=== PATIENT | male | born 1965 | race Caucasian/White ===

== ENCOUNTER 2019-08-04 08:55 | Outpatient (CLI) | payer BC ==
--- NOTE | 2019-08-04 09:30 | CT ---
CT THORAX NONCONTRAST: (Low dose screening) DATE: 08/04/2019 HISTORY: 54-year-old male smoker presents for lung cancer screening examination. COMPARISON: none FINDINGS: At the far lateral, subpleural region of the right upper lobe, at the mid lung zone, there is a clust er of numerous tiny noncalcified pulmonary nodules with ill-defined margins. The largest is 5 mm. The smaller ones are 1 to 2 mm. This clustered morphology is very unlikely to represent lung cancer o r metastatic disease. Elsewhere, there are mild to moderate reticular subpleural densities, with the lower lobe predominanc e. No bronchiectasis or honeycombing. No bullae. Heavy atherosclerotic calcification and/or stent in LAD, left main, LCx, and RCA. Atherosclerotic kathi cification without aneurysm of thoracic aorta. No cardiomegaly, pleural effusion, adrenal nodule, or pneumothorax. IMPRESSION: 1) lung RADS category 2X (benign appearance, less than 1% chance of malignancy). 2) coronary atherosclerosis due to calcified coronary lesion. 3) nonspecific subpleural reticular densities.
== END 2019-08-04 08:56 | disposition home or self-care (01) ==
LOC: CT 08:55
PROVIDERS: ATTEND Family Medicine
DX: F17.210 Nicotine dependence, cigarettes, uncomplicated (principal); I25.10 Atherosclerotic heart disease of native coronary artery without angina pectoris; R91.8 Other nonspecific abnormal finding of lung field
CPT/HCPCS: 36415; 80053; 80061; 82306; 84443; 85025; G0297; G0103

== ENCOUNTER 2020-06-22 13:23 | Outpatient (CLI) | payer BC ==
--- NOTE | 2020-06-22 14:21 | RAD ---
XR Chest Pa Lat STANDARD HISTORY: Gammopathy with multiple M spikes COMPARISON: 07/30/2007 FINDINGS: The heart size is normal. Interval postoperative changes of median sternotomy are seen. The lungs are well expanded without focal areas of consolidation, pneumothorax or pleural effusions. The bony structures are otherwise unremarkable. IMPRESSION: No radiographic evidence of acute cardiopulmonary process.
--- NOTE | 2020-06-22 14:26 | RAD ---
Exam: AP pelvis one view: HISTORY: Gammopathy with multiple M spikes COMPARISON: None FINDINGS: No evidence for focal lytic bone lesion. No evidence for fracture, dislocation, or other significant acute osseous abnormality. IMPRESSION: No significant acute process.
--- NOTE | 2020-06-22 14:28 | RAD ---
Exam: Skull series 4 views: HISTORY: Gammopathy with multiple M spikes 4 views of the skull demonstrate no evidence for focal circumscribed lytic defect or lesion. Bony dem ineralization of the sella turcica. IMPRESSION: No convincing evidence for focal lytic bone lesion.
== END 2020-06-22 13:24 | disposition home or self-care (01) ==
LOC: BICRAD 13:23
PROVIDERS: ATTEND Family Medicine
DX: C90.00 Multiple myeloma not having achieved remission (principal); R63.4 Abnormal weight loss; D47.2 Monoclonal gammopathy
CPT/HCPCS: 70260; 71046; 72170

== ENCOUNTER 2020-07-01 09:01 | Day surgery (SDC) | payer BC ==
[2020-06-30 15:03] VITALS: BMI 26.5
[2020-07-01 09:23] LABS: INR-International Normal Ratio 1.1; Prothrombin Time 14.1 sec (12.0-14.7)
[2020-07-01 09:24] LABS: PTT 30.8 sec (22.9-36.1)
[2020-07-01 11:32] VITALS: BP 123/75; TEMP 98.4
--- NOTE | 2020-07-01 14:56 | CT ---
Bone marrow aspiration/biopsy CT-guided HISTORY: Myeloma. FINDINGS: After explaining the procedure and answering all questions, limited CT imaging of the pelvi s was performed with patient prone. Sterile technique, buffered local anesthesia, CT guidance, and a posterior approach were used to care fully engage an 11-gauge bone biopsy needle to the posterior cortex of the ilium body. Position was confirmed with CT. Blood aspirate was obtained and submitted to pathology personnel. Core bone marrow specimen obtained. Patient tolerated the procedure well and was eventually dismissed in good condition. IMPRESSION : Technically successful CT-guided biopsy/aspiration bone marrow. Pathology is pending.
--- NOTE | 2020-07-02 13:38 | CT ---
Bone marrow aspiration/biopsy CT-guided HISTORY: Myeloma. FINDINGS: After explaining the procedure and answering all questions, limited CT imaging of the pelvi s was performed with patient prone. Sterile technique, buffered local anesthesia, CT guidance, and a posterior approach were used to care fully engage an 11-gauge bone biopsy needle to the posterior cortex of the ilium body. Position was confirmed with CT. Blood aspirate was obtained and submitted to pathology personnel. Core bone marrow specimen obtained. Patient tolerated the procedure well and was eventually dismissed in good condition. IMPRESSION : Technically successful CT-guided biopsy/aspiration bone marrow. Pathology is pending. Transcribed Date/Time: 07/02/2020 1:37 PM
== END 2020-07-01 11:45 | disposition home or self-care (01) ==
LOC: CT 09:01
PROVIDERS: ATTEND Internal Medicine Hematology & Oncology
PROC: 07DR3ZX Extraction of Iliac Bone Marrow, Percutaneous Approach, Diagnostic (ICD-10-PCS; principal; 2020-07-01)
DX: C90.00 Multiple myeloma not having achieved remission (principal); I10 Essential (primary) hypertension; I25.10 Atherosclerotic heart disease of native coronary artery without angina pectoris; I25.2 Old myocardial infarction; E78.5 Hyperlipidemia, unspecified; G47.33 Obstructive sleep apnea (adult) (pediatric); Z79.899 Other long term (current) drug therapy
CPT/HCPCS: 20225; 36415; 77002; 85610; 85730; 88184; 88237

== ENCOUNTER 2020-07-13 08:26 | Outpatient (CLI) | payer BC ==
--- NOTE | 2020-07-13 11:13 | PET ---
Radionucleotide whole-body PET scan with CT attenuation correction HISTORY: Multiple myeloma not having achieved remission. Initial staging. FINDINGS: Heterogeneous muscular uptake is present about the arms and hands and The lower legs. At the right mandible adjacent to the canines, a somewhat ill-defined focus of increased uptake is pr esent with max SUV 6.8. CT images show dental hardware at this location. A focus of uptake at the right mandible at the expected location of the first and second molars shows max SUV 6.3. No lytic le mariam is evident on the CT images. No abnormality was apparent at this location on recent radiograph. About the right hand and wrist, prominent uptake is present, including at the triquetral max SUV 6.6 and the fourth metacarpal max SUV 161. No focal abnormalities are associated with the axial spine. Physiologic uptake is present along each urinary tract and the enteric system. Nondiagnostic CT attenuation correction images show prominent calcification throughout the arterial s tructures including the coronary arteries and postoperative changes of the mediastinum. Nonspecific hazy parenchymal opacity at the lower lobes shows no abnormal radiotracer activity and may represent chronic lung disease or mild atelectasis. IMPRESSION : No convincing scintigraphic evidence of myelomatous disease. Uptake about the right maxilla and mandible is likely related to dental disease given the absence of lytic lesion on recent radiograph and the CT findings on today's exam. Uptake at the right wrist/hand is likely related to inflammation or recent trauma. Please correlate w ith clinical history/findings and with radiographic evaluation of the right wrist/hand concerning the possibility of a lytic lesion versus arthritis versus trauma..
== END 2020-07-13 08:27 | disposition home or self-care (01) ==
LOC: PET 08:26
PROVIDERS: ATTEND Internal Medicine Hematology & Oncology
DX: C90.00 Multiple myeloma not having achieved remission (principal)
CPT/HCPCS: 78816; A9552

== ENCOUNTER 2021-07-27 17:04 | Inpatient (IN) | payer BC ==
[~2021-07-27 17:04] MED LIST: Iopamidol-370 76% 500 ML 1 ML ONE
[2021-07-27] MEDS ORDERED: methylPREDNISolone Sod Succ/PF 125 MG/2 ML VIAL ONE (17:33)
[2021-07-27 17:47] LABS: Hemoglobin 14.3 g/dL (14.0-18.0); Mean Corpuscular HGB CONC 33.7 g/dL (32.0-36.0); Mean Corpuscular Hemoglobin 32.9 pg (27.0-31.0); Mean Corpuscular Volume 97.7 fL (78.0-98.0); Mean Platelet Volume 8.2 fL (7.4-10.4); Platelet Count 162 thou/uL (130-400); RBC Distribution Width 19.1 % (11.5-14.5); Red Blood Cell (RBC) Count 4.35 mill/uL (4.70-6.10)
[2021-07-27 17:51] LABS: #Lymphocytes 0.7 thou/uL (1.20-3.40); #Monocytes 0.3 thou/uL (0.11-0.59); #Neutrophils 11.9 thou/uL (1.40-6.50); %Basophils 0.2 % (0.0-1.0); %Eosinophils 0.1 % (0.0-10.0); %Lymphocytes 5.5 % (21.0-51.0); %Monocytes 2.2 % (0.0-10.0); %Neutrophils 92.1 % (42.0-75.0)
[2021-07-27 18:04] LABS: Anisocytosis SLIGHT = 6-15 cells (100X) (0-5/hpf); MDiff Complete? YES; Platelet Morphology Comment Appears Adequate
[2021-07-27 18:10] LABS: ALT (SGPT) 32 U/L (8-55); AST (SGOT) 23 U/L (5-34); Albumin 3.7 g/dL (3.5-5.0); Alkaline Phosphatase 136 U/L (40-110); Anion Gap 15 mmol/L (10-20); BUN (Urea Nitrogen) 18 mg/dL (8.4-25.7); Bilirubin, Total 0.4 mg/dL (0.2-1.2); Calc. Creatinine Clearance 0 mL/min (70-130); Calcium 9.2 mg/dL (7.8-10.44); Carbon Dioxide 25 mmol/L (22-29); Chloride 99 mmol/L (98-107); Globulin 2.6 g/dL (2.4-3.5); Glucose 119 mg/dL (70-105); Potassium 4.5 mmol/L (3.5-5.1); Protein, Total 6.3 g/dL (6.0-8.3); Sodium 134 mmol/L (136-145)
[2021-07-27] MEDS ORDERED: Cefepime 2 GM VIAL ONE (18:34)
[2021-07-27] MEDS ORDERED: Acetaminophen 650 MG Suppository PR PRN (21:32)
[2021-07-27] MEDS ORDERED: Ondansetron ODT 4 MG TAB PO PRN (21:32)
[2021-07-27] MEDS ORDERED: Acetaminophen 325 MG TAB PO PRN (21:32)
[2021-07-27] MEDS ORDERED: Ondansetron PF 4 MG/2 ML Vial IVP PRN (21:32)
[2021-07-27 21:51] LABS: Lactic Acid 2.9 mmol/L (0.5-2.2)
[2021-07-27 22:09] LABS: SARS-CoV-2 NAA Rapid Test Not Detected (NotDetected)
[2021-07-28 05:04] LABS: #Lymphocytes 0.8 thou/uL (1.20-3.40); #Monocytes 0.2 thou/uL (0.11-0.59); #Neutrophils 10.6 thou/uL (1.40-6.50); %Eosinophils 0.1 % (0.0-10.0); %Lymphocytes 7.2 % (21.0-51.0); %Monocytes 1.8 % (0.0-10.0); %Neutrophils 90.9 % (42.0-75.0); Hemoglobin 12.9 g/dL (14.0-18.0); Mean Corpuscular HGB CONC 33.2 g/dL (32.0-36.0); Mean Corpuscular Hemoglobin 32.8 pg (27.0-31.0); Mean Corpuscular Volume 98.6 fL (78.0-98.0); Mean Platelet Volume 8.5 fL (7.4-10.4); Platelet Count 129 thou/uL (130-400); RBC Distribution Width 18.8 % (11.5-14.5); Red Blood Cell (RBC) Count 3.94 mill/uL (4.70-6.10); White Blood Cell (WBC) Count 11.7 thou/uL (4.8-10.8)
[2021-07-28 05:25] LABS: Anion Gap 14 mmol/L (10-20); BUN (Urea Nitrogen) 18 mg/dL (8.4-25.7); Calc. Creatinine Clearance 111 mL/min (70-130); Calcium 9.2 mg/dL (7.8-10.44); Carbon Dioxide 22 mmol/L (22-29); Chloride 98 mmol/L (98-107); Glucose 211 mg/dL (70-105); Potassium 4.1 mmol/L (3.5-5.1); Sodium 130 mmol/L (136-145)
[2021-07-28] MEDS: methylPREDNISolone Sod Succ 40 MG VIAL IVP SCH ×2 (07:59→16:54)
[2021-07-28] MEDS ORDERED: Piperacillin/Tazobactam 3.375 GM in Sodium Chloride 0.9% 100 ML IVPB SCH (08:15)
[2021-07-28 08:23] LABS: Magnesium 1.6 mg/dL (1.6-2.6); Phosphorus 2.4 mg/dL (2.3-4.7)
[2021-07-28] MEDS: Enoxaparin Sodium 40 MG/0.4 ML SYRINGE SC SCH (09:32)
[2021-07-28 11:36] LABS: Lactic Acid 2.2 mmol/L (0.5-2.2)
[2021-07-28] MEDS ORDERED: Non-Formulary Item 1 EACH (Cholecalciferol (Vitamin D3) [Vitamin D3] 5000 UNIT Capsule) PO SCH (12:00)
[2021-07-28] MEDS ORDERED: Clopidogrel Bisulfate 75 MG TAB PO SCH (13:00)
[2021-07-28] MEDS: Clopidogrel Bisulfate 75 MG TAB PO SCH (13:13)
[2021-07-28 13:30] LABS: Free T4 (Free Thyroxine) 0.76 ng/dL (0.70-1.48); Thyroid Stimulating Hormone 0.7006 uIU/mL (0.35-4.94)
[2021-07-28] MEDS: Azithromycin 500 MG in Sodium Chloride 0.9% 250 ML 250 ML IVPB SCH (15:30)
[2021-07-28] MEDS: Piperacillin/Tazobactam 3.375 GM in Sodium Chloride 0.9% 100 ML IVPB SCH (16:54)
[2021-07-28] MEDS: valACYclovir 500 MG TAB PO SCH (20:38)
[2021-07-28] MEDS: Rosuvastatin 20 MG TAB PO SCH (20:39)
[2021-07-28] MEDS: Sulfameth/Trimethoprim SS 400-80MG TAB PO SCH (20:39)
[2021-07-28] MEDS: Icosapent Ethyl 1 GM CAPSULE PO SCH (20:40)
[2021-07-28] MEDS: Benzonatate 100 MG CAP PO SCH (20:40)
[2021-07-28] MEDS: Aspirin Chewable 81 MG TAB PO SCH (20:41)
[2021-07-28] MEDS: Ezetimibe 10 MG TAB PO SCH (20:41)
[2021-07-28] MEDS: Temazepam 15 MG CAP PO SCH (20:42)
[2021-07-28] MEDS: Fluconazole 100 MG TAB PO SCH (20:43)
[2021-07-28] MEDS: Multivit, Therapeutic 1 TAB PO SCH (20:44)
[2021-07-28] MEDS ORDERED: [UNRECOGNIZED DRUG - OTHER] PO SCH (21:00)
[2021-07-28] MEDS ORDERED: Non-Formulary Item 1 EACH (Icosapent Ethyl 1 GM Capsule) PO SCH (21:00)
[2021-07-28] MEDS ORDERED: Non-Formulary Item 1 EACH (Temazepam [Temazepam] 30 MG Capsule) PO SCH (21:00)
[2021-07-28] MEDS ORDERED: Non-Formulary Item 1 EACH (Fluconazole [Fluconazole] 200 MG Tablet) PO SCH (21:00)
[2021-07-28] MEDS ORDERED: FOLIC ACID PO SCH (21:00)
[2021-07-29] MEDS: Piperacillin/Tazobactam 3.375 GM in Sodium Chloride 0.9% 100 ML IVPB SCH ×4 (01:00→23:30)
[2021-07-29] MEDS: methylPREDNISolone Sod Succ 40 MG VIAL IVP SCH ×4 (01:00→23:30)
[2021-07-29] MEDS: Enoxaparin Sodium 40 MG/0.4 ML SYRINGE SC SCH (08:25)
[2021-07-29] MEDS: Benzonatate 100 MG CAP PO SCH ×2 (08:25→21:18)
[2021-07-29] MEDS: Fluconazole 100 MG TAB PO SCH ×2 (08:26→21:17)
[2021-07-29 10:15] LABS: #Lymphocytes 0.8 thou/uL (1.20-3.40); #Monocytes 0.2 thou/uL (0.11-0.59); #Neutrophils 10.1 thou/uL (1.40-6.50); %Basophils 0.1 % (0.0-1.0); %Lymphocytes 6.9 % (21.0-51.0); %Monocytes 1.4 % (0.0-10.0); %Neutrophils 91.6 % (42.0-75.0); Hemoglobin 12.5 g/dL (14.0-18.0); Mean Corpuscular HGB CONC 32.9 g/dL (32.0-36.0); Mean Corpuscular Hemoglobin 32.4 pg (27.0-31.0); Mean Corpuscular Volume 98.5 fL (78.0-98.0); Mean Platelet Volume 8.4 fL (7.4-10.4); Platelet Count 120 thou/uL (130-400); RBC Distribution Width 18.8 % (11.5-14.5); Red Blood Cell (RBC) Count 3.84 mill/uL (4.70-6.10); White Blood Cell (WBC) Count 11.1 thou/uL (4.8-10.8)
[2021-07-29 10:34] LABS: Anion Gap 12 mmol/L (10-20); BUN (Urea Nitrogen) 22 mg/dL (8.4-25.7); Calc. Creatinine Clearance 108 mL/min (70-130); Calcium 8.9 mg/dL (7.8-10.44); Carbon Dioxide 25 mmol/L (22-29); Chloride 97 mmol/L (98-107); Glucose 150 mg/dL (70-105); Potassium 4.1 mmol/L (3.5-5.1); Sodium 130 mmol/L (136-145)
[2021-07-29] MEDS: Azithromycin 500 MG in Sodium Chloride 0.9% 250 ML 250 ML IVPB SCH (14:49)
[2021-07-29] MEDS: Rosuvastatin 20 MG TAB PO SCH (21:17)
[2021-07-29] MEDS: Sulfameth/Trimethoprim SS 400-80MG TAB PO SCH (21:17)
[2021-07-29] MEDS: Aspirin Chewable 81 MG TAB PO SCH (21:17)
[2021-07-29] MEDS: valACYclovir 500 MG TAB PO SCH (21:17)
[2021-07-29] MEDS: Icosapent Ethyl 1 GM CAPSULE PO SCH (21:18)
[2021-07-29] MEDS: Ezetimibe 10 MG TAB PO SCH (21:18)
[2021-07-29] MEDS: Multivit, Therapeutic 1 TAB PO SCH (21:18)
[2021-07-29] MEDS: Temazepam 15 MG CAP PO SCH (21:18)
[2021-07-30 08:33] LABS: Hemoglobin 12.2 g/dL (14.0-18.0); Mean Corpuscular HGB CONC 32.6 g/dL (32.0-36.0); Mean Corpuscular Hemoglobin 32.3 pg (27.0-31.0); RBC Distribution Width 19.2 % (11.5-14.5); Red Blood Cell (RBC) Count 3.78 mill/uL (4.70-6.10)
[2021-07-30] MEDS: Piperacillin/Tazobactam 3.375 GM in Sodium Chloride 0.9% 100 ML IVPB SCH ×2 (09:05→17:00)
[2021-07-30] MEDS: Fluconazole 100 MG TAB PO SCH ×2 (09:06→21:35)
[2021-07-30] MEDS: Benzonatate 100 MG CAP PO SCH ×2 (09:06→21:35)
[2021-07-30] MEDS: Enoxaparin Sodium 40 MG/0.4 ML SYRINGE SC SCH (09:06)
[2021-07-30] MEDS: methylPREDNISolone Sod Succ 40 MG VIAL IVP SCH ×2 (09:06→17:00)
[2021-07-30 11:01] LABS: Anisocytosis SLIGHT = 6-15 cells (100X) (0-5/hpf); Band 4 % (5-11); Lymphocytes 9 % (21-51); MDiff Complete? YES; Monocytes 2 % (0-10); Neutrophil 85 % (42-75); Platelet Count 109 thou/uL (130-400); Platelet Morphology Comment Appears Decreased; Vacuoles SLIGHT; White Blood Cell (WBC) Count 10.2 thou/uL (4.8-10.8)
[2021-07-30] MEDS: Clopidogrel Bisulfate 75 MG TAB PO SCH (12:49)
[2021-07-30] MEDS: Azithromycin 500 MG in Sodium Chloride 0.9% 250 ML 250 ML IVPB SCH (15:10)
[2021-07-30] MEDS: Multivit, Therapeutic 1 TAB PO SCH (21:34)
[2021-07-30] MEDS: valACYclovir 500 MG TAB PO SCH (21:34)
[2021-07-30] MEDS: Temazepam 15 MG CAP PO SCH (21:34)
[2021-07-30] MEDS: Sulfameth/Trimethoprim SS 400-80MG TAB PO SCH (21:34)
[2021-07-30] MEDS: Aspirin Chewable 81 MG TAB PO SCH (21:35)
[2021-07-30] MEDS: Ezetimibe 10 MG TAB PO SCH (21:35)
[2021-07-30] MEDS: Rosuvastatin 20 MG TAB PO SCH (21:35)
[2021-07-30] MEDS: Icosapent Ethyl 1 GM CAPSULE PO SCH (21:35)
[2021-07-31] MEDS: Piperacillin/Tazobactam 3.375 GM in Sodium Chloride 0.9% 100 ML IVPB SCH ×2 (00:03→08:45)
[2021-07-31] MEDS: methylPREDNISolone Sod Succ 40 MG VIAL IVP SCH ×3 (00:04→16:39)
[2021-07-31] MEDS: Benzonatate 100 MG CAP PO SCH ×2 (04:00→08:46)
[2021-07-31 05:25] LABS: Band 5 % (5-11); Hemoglobin 12.2 g/dL (14.0-18.0); Lymphocytes 6 % (21-51); MDiff Complete? YES; Macrocytosis SLIGHT = 6-15 cells (100X) (0-5/hpf); Mean Corpuscular HGB CONC 32.5 g/dL (32.0-36.0); Mean Corpuscular Hemoglobin 32.2 pg (27.0-31.0); Mean Platelet Volume 10.1 fL (7.4-10.4); Monocytes 3 % (0-10); Neutrophil 85 % (42-75); Platelet Count 86 thou/uL (130-400); Platelet Morphology Comment Appears Decreased; RBC Distribution Width 19.1 % (11.5-14.5); Reactive Lymphocytes 1 % (0-10); Red Blood Cell (RBC) Count 3.79 mill/uL (4.70-6.10)
[2021-07-31] MEDS ORDERED: Sodium Chloride 0.65% Nasal 44 ML BOT EA NARE PRN (06:16)
[2021-07-31] MEDS: Ergocalciferol 1.25 MG(50,000 UNITS) CAP PO SCH (08:46)
[2021-07-31] MEDS: Fluconazole 100 MG TAB PO SCH ×2 (08:46→21:00)
[2021-07-31] MEDS: Enoxaparin Sodium 40 MG/0.4 ML SYRINGE SC SCH (08:47)
[2021-07-31] MEDS ORDERED: Succinylcholine 200 MG/10 ml SYRINGE FS ONE (09:40)
[2021-07-31] MEDS: Azithromycin 500 MG in Sodium Chloride 0.9% 250 ML 250 ML IVPB SCH (14:48)
[2021-07-31] MEDS: Linezolid 600 MG in Premix Bag 1 BAG IVPB SCH (16:37)
[2021-07-31] MEDS: Cefepime 2 GM in Sodium Chloride 0.9% 100 ML IVPB SCH (16:37)
[2021-07-31] MEDS ORDERED: Lorazepam 2 MG/ML VIAL SLOW IVP PRN (18:36)
[2021-07-31] MEDS ORDERED: Lorazepam 2 MG/ML VIAL ONE (18:38)
[2021-07-31 18:55] LABS: Actual Bicarbonate (HCO3a) 25.7 mEq/L (22-28); CO2 Tension 41.1 mmHg (35.0-45.0); Calcium, Ionized (arterial) 1.16 mmol/L (1.12-1.30); Carboxyhemoglobin (COHb) 1.4 gm% (0.0-3.0); Hemoglobin (Hb) 13.2 g/dL (14.0-18.0); Potassium - ABG Lab 4.53 mmol/L (3.70-5.30); pH, Arterial 7.41 (7.35-7.45)
[2021-07-31 18:57] LABS: ALV-art Gradient 617.625 mmHg (0-20); Puncture Site RRA
[2021-07-31] MEDS: Propofol 1,000 MG/100 ML VIAL IV PRN ×2 (19:21→23:30)
[2021-07-31] MEDS ORDERED: Fentanyl CADD 100 ML ONE (19:36)
[2021-07-31] MEDS: Fentanyl CADD 100 ML IV SCH (19:36)
[2021-07-31 19:44] LABS: Actual Bicarbonate (HCO3a) 26.9 mEq/L (22-28); Base Excess (BEa) 0.8 mEq/L (-2.0 to +3.0); CO2 Tension 48.7 mmHg (35.0-45.0); Calcium, Ionized (arterial) 1.15 mmol/L (1.12-1.30); Carboxyhemoglobin (COHb) 1.4 gm% (0.0-3.0); Hemoglobin (Hb) 13.1 g/dL (14.0-18.0); Potassium - ABG Lab 4.77 mmol/L (3.70-5.30); pH, Arterial 7.36 (7.35-7.45)
[2021-07-31 19:45] LABS: O2 Tension (PaO2), arterial 48.1 mmHg (80.0-100.0)
[2021-07-31 19:46] LABS: ALV-art Gradient 604.025 mmHg (0-20); Puncture Site RRA
[2021-07-31] MEDS ORDERED: Vecuronium 10 MG VIAL ONE (20:08)
[2021-07-31] MEDS: Vecuronium 10 MG VIAL IV PRN ×2 (20:10→22:15)
[2021-07-31] MEDS ORDERED: Vecuronium 10 MG VIAL IV PRN ×2 (20:15→21:15)
[2021-07-31] MEDS ORDERED: Midazolam HCl 2 mg/2 ml Vial SLOW IVP PRN (20:15)
[2021-07-31] MEDS ORDERED: Norepinephrine 8 MG/0.9% NS 250 ML IVPB PRN (20:17)
[2021-07-31] MEDS ORDERED: Midazolam HCl 2 mg/2 ml Vial ONE (20:17)
[2021-07-31] MEDS ORDERED: Propofol BOLUS 1,000 MG/100 ML VIAL IV PRN (20:30)
[2021-07-31] MEDS ORDERED: DISCONTINUE PREVIOUS NARCOTIC PAIN MEDICATIONS AND BENZODIAZEPINES FS SCH (20:30)
[2021-07-31] MEDS ORDERED: Fentanyl BOLUS 250 ML IVPB PRN (20:30)
[2021-07-31] MEDS ORDERED: Morphine 4 MG/ML VIAL ONE (20:53)
[2021-07-31] MEDS: Lorazepam 2 MG/ML VIAL SLOW IVP PRN (20:55)
[2021-07-31] MEDS: valACYclovir 500 MG TAB PO SCH (21:00)
[2021-07-31] MEDS: Ezetimibe 10 MG TAB PO SCH (21:00)
[2021-07-31] MEDS: Rosuvastatin 20 MG TAB PO SCH (21:00)
[2021-07-31] MEDS: Sulfameth/Trimethoprim SS 400-80MG TAB PO SCH (21:00)
[2021-07-31] MEDS: Multivit, Therapeutic 1 TAB PO SCH (21:00)
[2021-07-31] MEDS: Icosapent Ethyl 1 GM CAPSULE PO SCH (21:00)
[2021-07-31] MEDS: Morphine 2 MG/ML VIAL SLOW IVP PRN (21:10)
[2021-07-31 21:33] LABS: Actual Bicarbonate (HCO3a) 28.8 mEq/L (22-28); Base Excess (BEa) -0.1 mEq/L (-2.0 to +3.0); Calcium, Ionized (arterial) 1.17 mmol/L (1.12-1.30); Carboxyhemoglobin (COHb) 0.8 gm% (0.0-3.0); Hemoglobin (Hb) 12.9 g/dL (14.0-18.0); O2 Tension (PaO2), arterial 67.5 mmHg (80.0-100.0); Potassium - ABG Lab 4.73 mmol/L (3.70-5.30)
[2021-07-31 21:38] LABS: Puncture Site LRA; pH, Arterial 7.24 (7.35-7.45)
[2021-07-31] MEDS ORDERED: Sodium Bicarb 50 MEQ/50 ML Abboject 8.4% SYRINGE ONE (21:44)
[2021-07-31] MEDS: Sodium Bicarb 50 MEQ/50 ML Abboject 8.4% SYRINGE IVP SCH (22:00)
[2021-08-01] MEDS: Aspirin Chewable 81 MG TAB PO SCH ×3 (00:41→21:47)
[2021-08-01] MEDS: Fluconazole 100 MG TAB PO SCH ×2 (00:42→21:47)
[2021-08-01] MEDS: Benzonatate 100 MG CAP PO SCH ×2 (00:42→08:59)
[2021-08-01] MEDS: Vecuronium 10 MG VIAL IV PRN ×5 (01:36→08:06)
[2021-08-01] MEDS: Sodium Bicarb 50 MEQ/50 ML Abboject 8.4% SYRINGE IVP SCH ×4 (01:53→14:41)
[2021-08-01] MEDS ORDERED: Morphine 4 MG/ML VIAL ONE (01:57)
[2021-08-01 02:08] LABS: Actual Bicarbonate (HCO3a) 54.3 mEq/L (22-28); Base Excess (BEa) 23.6 mEq/L (-2.0 to +3.0); CO2 Tension 96.5 mmHg (35.0-45.0); Calcium, Ionized (arterial) 0.98 mmol/L (1.12-1.30); Carboxyhemoglobin (COHb) 1.6 gm% (0.0-3.0); Hemoglobin (Hb) 12.6 g/dL (14.0-18.0); O2 Tension (PaO2), arterial 48.5 mmHg (80.0-100.0); pH, Arterial 7.37 (7.35-7.45)
[2021-08-01] MEDS: Lorazepam 2 MG/ML VIAL SLOW IVP PRN ×2 (02:08→16:00)
[2021-08-01 02:09] LABS: Puncture Site LR
[2021-08-01 02:10] LABS: ALV-art Gradient 543.875 mmHg (0-20)
[2021-08-01] MEDS: Morphine 2 MG/ML VIAL SLOW IVP PRN (02:12)
[2021-08-01 02:32] LABS: #Lymphocytes 0.7 thou/uL (1.20-3.40); #Monocytes 0.2 thou/uL (0.11-0.59); %Basophils 0.2 % (0.0-1.0); %Eosinophils 0.1 % (0.0-10.0); %Lymphocytes 7.7 % (21.0-51.0); %Monocytes 2.2 % (0.0-10.0); %Neutrophils 89.9 % (42.0-75.0); Hemoglobin 12.7 g/dL (14.0-18.0); Mean Corpuscular HGB CONC 32.8 g/dL (32.0-36.0); Mean Corpuscular Hemoglobin 33.2 pg (27.0-31.0); Mean Platelet Volume 10.5 fL (7.4-10.4); Platelet Count 71 thou/uL (130-400); RBC Distribution Width 18.6 % (11.5-14.5); Red Blood Cell (RBC) Count 3.84 mill/uL (4.70-6.10); White Blood Cell (WBC) Count 8.8 thou/uL (4.8-10.8)
[2021-08-01 02:42] LABS: ALT (SGPT) 132 U/L (8-55); AST (SGOT) 110 U/L (5-34); Albumin 2.7 g/dL (3.5-5.0); Alkaline Phosphatase 233 U/L (40-110); Anion Gap 12 mmol/L (10-20); BUN (Urea Nitrogen) 28 mg/dL (8.4-25.7); Bilirubin, Total 0.9 mg/dL (0.2-1.2); Calc. Creatinine Clearance 112 mL/min (70-130); Calcium 8.7 mg/dL (7.8-10.44); Carbon Dioxide 33 mmol/L (22-29); Chloride 96 mmol/L (98-107); Globulin 2.9 g/dL (2.4-3.5); Glucose 183 mg/dL (70-105); Magnesium 1.9 mg/dL (1.6-2.6); Potassium 4.8 mmol/L (3.5-5.1); Protein, Total 5.6 g/dL (6.0-8.3); Sodium 136 mmol/L (136-145)
[2021-08-01 03:24] LABS: Fibrinogen 693 mg/dL (253-463)
[2021-08-01 03:25] LABS: INR-International Normal Ratio 1.3; PTT 28.7 sec (22.9-36.1); Prothrombin Time 15.9 sec (12.0-14.7)
[2021-08-01] MEDS: valACYclovir 500 MG TAB PO SCH (04:02)
[2021-08-01] MEDS: Propofol 1,000 MG/100 ML VIAL IV PRN ×3 (04:09→19:30)
[2021-08-01 04:12] LABS: D-Dimer Test Greater than 20.00 *mcg/mL (0.27-0.43)
[2021-08-01] MEDS: Cefepime 2 GM in Sodium Chloride 0.9% 100 ML IVPB SCH ×2 (06:05→16:29)
[2021-08-01] MEDS: Linezolid 600 MG in Premix Bag 1 BAG IVPB SCH ×2 (06:06→16:38)
[2021-08-01] MEDS ORDERED: Sterile Water 10 ML ONE (07:55)
[2021-08-01] MEDS: methylPREDNISolone Sod Succ 40 MG VIAL IVP SCH ×4 (08:02→23:17)
[2021-08-01 08:22] LABS: Actual Bicarbonate (HCO3a) 37.2 mEq/L (22-28); Base Excess (BEa) 9.5 mEq/L (-2.0 to +3.0); Calcium, Ionized (arterial) 1.06 mmol/L (1.12-1.30); Carboxyhemoglobin (COHb) 0.6 gm% (0.0-3.0); Hemoglobin (Hb) 11.5 g/dL (14.0-18.0); O2 Tension (PaO2), arterial 87.7 mmHg (80.0-100.0); pH, Arterial 7.36 (7.35-7.45)
[2021-08-01 08:24] LABS: CO2 Tension 67.6 mmHg (35.0-45.0)
[2021-08-01 08:25] LABS: Puncture Site LRA
[2021-08-01] MEDS ORDERED: Calcium Gluconate 4.6 MEQ in Sodium Chloride 0.9% 100 ML IVPB SCH (09:04)
[2021-08-01] MEDS ORDERED: Fentanyl CADD 100 ML ONE ×2 (10:08→20:18)
[2021-08-01] MEDS: Fentanyl CADD 100 ML IV SCH ×2 (10:10→20:21)
[2021-08-01] MEDS: Clopidogrel Bisulfate 75 MG TAB PO SCH (13:19)
[2021-08-01] MEDS: Dextrose 5%-Lactated Ringers 1,000 ML IV SCH ×2 (13:19→23:16)
[2021-08-01 13:37] LABS: BUN (Urea Nitrogen) 30 mg/dL (8.4-25.7); Calc. Creatinine Clearance 112 mL/min (70-130); Calcium 8.8 mg/dL (7.8-10.44); Glucose 170 mg/dL (70-105); Magnesium 2.1 mg/dL (1.6-2.6); Phosphorus 3.4 mg/dL (2.3-4.7)
[2021-08-01 13:49] LABS: Anion Gap 10 mmol/L (10-20); Carbon Dioxide 39 mmol/L (22-29); Chloride 96 mmol/L (98-107); Potassium 4.6 mmol/L (3.5-5.1); Sodium 140 mmol/L (136-145)
[2021-08-01] MEDS: Azithromycin 500 MG in Sodium Chloride 0.9% 250 ML 250 ML IVPB SCH (14:41)
[2021-08-01 21:15] LABS: Anion Gap 12 mmol/L (10-20); BUN (Urea Nitrogen) 26 mg/dL (8.4-25.7); Calc. Creatinine Clearance 109 mL/min (70-130); Calcium 8.2 mg/dL (7.8-10.44); Carbon Dioxide 35 mmol/L (22-29); Chloride 95 mmol/L (98-107); Glucose 364 mg/dL (70-105); Magnesium 1.9 mg/dL (1.6-2.6); Phosphorus 2.4 mg/dL (2.3-4.7); Sodium 138 mmol/L (136-145)
[2021-08-01] MEDS: Multivit, Therapeutic 1 TAB PO SCH (21:47)
[2021-08-01] MEDS: Sulfameth/Trimethoprim SS 400-80MG TAB PO SCH (21:48)
[2021-08-01] MEDS: Icosapent Ethyl 1 GM CAPSULE PO SCH (21:49)
[2021-08-02] MEDS: Linezolid 600 MG in Premix Bag 1 BAG IVPB SCH (03:30)
[2021-08-02] MEDS: Cefepime 2 GM in Sodium Chloride 0.9% 100 ML IVPB SCH ×2 (04:17→16:38)
[2021-08-02 04:58] LABS: Anion Gap 13 mmol/L (10-20); BUN (Urea Nitrogen) 26 mg/dL (8.4-25.7); Calc. Creatinine Clearance 99 mL/min (70-130); Calcium 8.1 mg/dL (7.8-10.44); Carbon Dioxide 33 mmol/L (22-29); Chloride 96 mmol/L (98-107); Magnesium 1.8 mg/dL (1.6-2.6); Phosphorus 2.4 mg/dL (2.3-4.7); Sodium 138 mmol/L (136-145)
[2021-08-02 05:06] LABS: Glucose 654 mg/dL (70-105)
[2021-08-02] MEDS ORDERED: HumaLOG 300 UNITS/3 ML VIAL SC PRN (05:57)
[2021-08-02] MEDS ORDERED: Dextrose 5% in Water 1,000 ML IV PRN (05:57)
[2021-08-02] MEDS ORDERED: Dextrose 50% Abboject 50 ML SYRINGE SLOW IVP PRN (05:57)
[2021-08-02] MEDS ORDERED: Fentanyl CADD 100 ML ONE ×2 (06:13→23:54)
[2021-08-02] MEDS: Fentanyl CADD 100 ML IV SCH ×2 (06:15→23:56)
[2021-08-02] MEDS: HumaLOG 300 UNITS/3 ML VIAL SC PRN ×3 (06:15→23:50)
[2021-08-02] MEDS: Propofol 1,000 MG/100 ML VIAL IV PRN ×2 (06:15→16:44)
[2021-08-02 07:15] LABS: CMV IgG AB Greater than 10.00 U/mL (0.00-0.59)
[2021-08-02 07:20] LABS: Actual Bicarbonate (HCO3a) 36.5 mEq/L (22-28); Base Excess (BEa) 12.3 mEq/L (-2.0 to +3.0); CO2 Tension 45.7 mmHg (35.0-45.0); Calcium, Ionized (arterial) 1.11 mmol/L (1.12-1.30); Carboxyhemoglobin (COHb) 0.7 gm% (0.0-3.0); O2 Tension (PaO2), arterial 52.8 mmHg (80.0-100.0); Potassium - ABG Lab 3.76 mmol/L (3.70-5.30); Puncture Site RRA; pH, Arterial 7.52 (7.35-7.45)
[2021-08-02 07:21] LABS: ALV-art Gradient 282.225 mmHg (0-20)
[2021-08-02] MEDS: Dextrose 5%-Lactated Ringers 1,000 ML IV SCH ×2 (08:02→19:00)
[2021-08-02] MEDS: Benzonatate 100 MG CAP PO SCH ×2 (08:02→21:22)
[2021-08-02] MEDS: Fluconazole 100 MG TAB PO SCH ×2 (08:28→21:21)
[2021-08-02] MEDS: methylPREDNISolone Sod Succ 40 MG VIAL IVP SCH ×3 (08:28→23:50)
[2021-08-02] MEDS: Pantoprazole 40 MG VIAL IVP SCH (09:14)
[2021-08-02 11:43] LABS: #Lymphocytes 0.5 thou/uL (1.20-3.40); #Monocytes 0.1 thou/uL (0.11-0.59); %Basophils 0.3 % (0.0-1.0); %Eosinophils 0.3 % (0.0-10.0); %Lymphocytes 10.7 % (21.0-51.0); %Monocytes 1.5 % (0.0-10.0); %Neutrophils 87.2 % (42.0-75.0); Hemoglobin 11.2 g/dL (14.0-18.0); MDiff Complete? YES; Mean Corpuscular HGB CONC 32.5 g/dL (32.0-36.0); Mean Platelet Volume 9.9 fL (7.4-10.4); Platelet Count 40 thou/uL (130-400); Platelet Morphology Comment Appears Decreased; Polychromasia SLIGHT = 2-3 cells (100X) (0-2/hpf); RBC Distribution Width 18.2 % (11.5-14.5); Red Blood Cell (RBC) Count 3.38 mill/uL (4.70-6.10); Schistocytes SLIGHT = 2-5 cells (100X) (0-1/hpf); White Blood Cell (WBC) Count 4.6 thou/uL (4.8-10.8)
[2021-08-02 12:30] LABS: Anion Gap 12 mmol/L (10-20); BUN (Urea Nitrogen) 27 mg/dL (8.4-25.7); Calc. Creatinine Clearance 131 mL/min (70-130); Calcium 8.6 mg/dL (7.8-10.44); Carbon Dioxide 35 mmol/L (22-29); Chloride 96 mmol/L (98-107); Glucose 159 mg/dL (70-105); Magnesium 2.1 mg/dL (1.6-2.6); Potassium 4.5 mmol/L (3.5-5.1); Sodium 138 mmol/L (136-145)
[2021-08-02] MEDS: Azithromycin 500 MG in Sodium Chloride 0.9% 250 ML 250 ML IVPB SCH (15:02)
[2021-08-02 19:37] LABS: CMV DNA-PCR Test 13200 IU/mL (Negative); CMV log 10 Quant 4.121 (.)
[2021-08-02] MEDS: Aspirin Chewable 81 MG TAB PO SCH (21:20)
[2021-08-02] MEDS: Sulfameth/Trimethoprim SS 400-80MG TAB PO SCH (21:21)
[2021-08-02] MEDS: valACYclovir 500 MG TAB PO SCH (21:21)
[2021-08-02] MEDS: Multivit, Therapeutic 1 TAB PO SCH (21:21)
[2021-08-02] MEDS: Icosapent Ethyl 1 GM CAPSULE PO SCH (21:21)
[2021-08-03] MEDS: Dextrose 5%-Lactated Ringers 1,000 ML IV SCH (04:02)
[2021-08-03] MEDS: HumaLOG 300 UNITS/3 ML VIAL SC PRN ×5 (04:18→22:35)
[2021-08-03] MEDS: Cefepime 2 GM in Sodium Chloride 0.9% 100 ML IVPB SCH ×2 (04:18→17:00)
[2021-08-03 04:41] LABS: #Lymphocytes 0.4 thou/uL (1.20-3.40); #Monocytes 0.1 thou/uL (0.11-0.59); #Neutrophils 4.5 thou/uL (1.40-6.50); %Basophils 0.1 % (0.0-1.0); %Eosinophils 0.1 % (0.0-10.0); %Lymphocytes 7.7 % (21.0-51.0); %Monocytes 2.1 % (0.0-10.0); Hemoglobin 9.9 g/dL (14.0-18.0); Mean Corpuscular HGB CONC 33.6 g/dL (32.0-36.0); Mean Corpuscular Hemoglobin 33.6 pg (27.0-31.0); Mean Platelet Volume 12.1 fL (7.4-10.4); Platelet Count 36 thou/uL (130-400); RBC Distribution Width 18.3 % (11.5-14.5); Red Blood Cell (RBC) Count 2.95 mill/uL (4.70-6.10); White Blood Cell (WBC) Count 4.9 thou/uL (4.8-10.8)
[2021-08-03 04:51] LABS: Anion Gap 10 mmol/L (10-20); BUN (Urea Nitrogen) 32 mg/dL (8.4-25.7); Calc. Creatinine Clearance 131 mL/min (70-130); Calcium 8.5 mg/dL (7.8-10.44); Carbon Dioxide 34 mmol/L (22-29); Chloride 98 mmol/L (98-107); Glucose 187 mg/dL (70-105); Potassium 4.2 mmol/L (3.5-5.1); Sodium 138 mmol/L (136-145)
[2021-08-03] MEDS: Propofol 1,000 MG/100 ML VIAL IV PRN ×3 (05:08→22:59)
[2021-08-03 07:02] LABS: Actual Bicarbonate (HCO3a) 28.9 mEq/L (22-28); Base Excess (BEa) 5.1 mEq/L (-2.0 to +3.0); CO2 Tension 39.1 mmHg (35.0-45.0); Calcium, Ionized (arterial) 1.14 mmol/L (1.12-1.30); Carboxyhemoglobin (COHb) 0.9 gm% (0.0-3.0); Hemoglobin (Hb) 10.5 g/dL (14.0-18.0); Potassium - ABG Lab 3.93 mmol/L (3.70-5.30); pH, Arterial 7.49 (7.35-7.45)
[2021-08-03 07:53] LABS: O2 Tension (PaO2), arterial 54.2 mmHg (80.0-100.0); Puncture Site LRA
[2021-08-03 07:54] LABS: ALV-art Gradient 289.075 mmHg (0-20)
[2021-08-03] MEDS: Pantoprazole 40 MG VIAL IVP SCH (08:22)
[2021-08-03] MEDS: Benzonatate 100 MG CAP PO SCH ×2 (08:22→22:03)
[2021-08-03] MEDS: methylPREDNISolone Sod Succ 40 MG VIAL IVP SCH ×2 (08:22→17:00)
[2021-08-03] MEDS: Fluconazole 100 MG TAB PO SCH ×2 (08:22→22:02)
[2021-08-03] MEDS: Azithromycin 500 MG in Sodium Chloride 0.9% 250 ML 250 ML IVPB SCH (14:28)
[2021-08-03 15:14] LABS: Heparin-Induced Ab (HITA) 0.078 OD (0.000-0.400)
[2021-08-03] MEDS ORDERED: Fentanyl CADD 100 ML ONE (17:06)
[2021-08-03] MEDS: Fentanyl CADD 100 ML IV SCH (17:08)
[2021-08-03] MEDS: Vecuronium 10 MG VIAL IV PRN ×2 (20:46→22:41)
[2021-08-03] MEDS: Sterile Water 10 ML VIAL IVP PRN (20:51)
[2021-08-03] MEDS ORDERED: Ganciclovir Sodium 500 MG/10 ML VIAL IVPB SCH (21:00)
[2021-08-03] MEDS: Multivit, Therapeutic 1 TAB PO SCH (22:01)
[2021-08-03] MEDS: Aspirin Chewable 81 MG TAB PO SCH (22:02)
[2021-08-03] MEDS: Icosapent Ethyl 1 GM CAPSULE PO SCH (22:02)
[2021-08-03] MEDS: Sulfameth/Trimethoprim SS 400-80MG TAB PO SCH (22:02)
[2021-08-03] MEDS: valACYclovir 500 MG TAB PO SCH (22:03)
[2021-08-03] MEDS: Lorazepam 2 MG/ML VIAL SLOW IVP PRN (22:41)
[2021-08-03] MEDS: GANCICLOVIR SODIUM IVPB SCH (22:44)
[2021-08-03] MEDS: SODIUM CHLORIDE 0.9% IVPB SCH (22:44)
[2021-08-04] MEDS: methylPREDNISolone Sod Succ 40 MG VIAL IVP SCH ×4 (00:47→23:56)
[2021-08-04] MEDS: HumaLOG 300 UNITS/3 ML VIAL SC PRN ×5 (00:48→21:28)
[2021-08-04] MEDS: Vecuronium 10 MG VIAL IV PRN ×3 (01:34→06:54)
[2021-08-04] MEDS: Lorazepam 2 MG/ML VIAL SLOW IVP PRN ×4 (01:35→14:57)
[2021-08-04] MEDS: Cefepime 2 GM in Sodium Chloride 0.9% 100 ML IVPB SCH ×2 (04:03→16:52)
[2021-08-04] MEDS: Propofol 1,000 MG/100 ML VIAL IV PRN ×5 (04:08→20:54)
[2021-08-04] MEDS ORDERED: Fentanyl CADD 100 ML ONE ×2 (04:33→14:47)
[2021-08-04 04:38] LABS: #Lymphocytes 0.5 thou/uL (1.20-3.40); #Monocytes 0.1 thou/uL (0.11-0.59); #Neutrophils 4.7 thou/uL (1.40-6.50); %Eosinophils 0.1 % (0.0-10.0); %Monocytes 1.6 % (0.0-10.0); %Neutrophils 89.3 % (42.0-75.0); Hemoglobin 9.5 g/dL (14.0-18.0); Mean Corpuscular HGB CONC 33.3 g/dL (32.0-36.0); Mean Corpuscular Hemoglobin 33.6 pg (27.0-31.0); Mean Platelet Volume 12.9 fL (7.4-10.4); Platelet Count 30 thou/uL (130-400); RBC Distribution Width 18.3 % (11.5-14.5); Red Blood Cell (RBC) Count 2.83 mill/uL (4.70-6.10); White Blood Cell (WBC) Count 5.3 thou/uL (4.8-10.8)
[2021-08-04] MEDS: Fentanyl CADD 100 ML IV SCH ×2 (04:38→14:53)
[2021-08-04 04:59] LABS: Anion Gap 10 mmol/L (10-20); BUN (Urea Nitrogen) 31 mg/dL (8.4-25.7); Calc. Creatinine Clearance 120 mL/min (70-130); Calcium 8.5 mg/dL (7.8-10.44); Carbon Dioxide 34 mmol/L (22-29); Chloride 98 mmol/L (98-107); Glucose 204 mg/dL (70-105); Potassium 4.8 mmol/L (3.5-5.1); Sodium 137 mmol/L (136-145)
[2021-08-04 07:26] LABS: Actual Bicarbonate (HCO3a) 32.9 mEq/L (22-28); Base Excess (BEa) 4.9 mEq/L (-2.0 to +3.0); Calcium, Ionized (arterial) 1.15 mmol/L (1.12-1.30); Carboxyhemoglobin (COHb) 0.5 gm% (0.0-3.0); Hemoglobin (Hb) 9.8 g/dL (14.0-18.0); O2 Tension (PaO2), arterial 63.5 mmHg (80.0-100.0); Potassium - ABG Lab 4.71 mmol/L (3.70-5.30); pH, Arterial 7.29 (7.35-7.45)
[2021-08-04 07:45] LABS: CO2 Tension 70.1 mmHg (35.0-45.0)
[2021-08-04 07:46] LABS: ALV-art Gradient 276.675 mmHg (0-20); Puncture Site LRA
[2021-08-04] MEDS: Fluconazole 100 MG TAB PO SCH ×2 (08:54→20:56)
[2021-08-04] MEDS: Benzonatate 100 MG CAP PO SCH ×2 (08:57→20:52)
[2021-08-04] MEDS: Pantoprazole 40 MG VIAL IVP SCH (10:15)
[2021-08-04] MEDS: GANCICLOVIR SODIUM IVPB SCH ×2 (10:24→21:00)
[2021-08-04] MEDS: SODIUM CHLORIDE 0.9% IVPB SCH ×2 (10:24→21:00)
[2021-08-04] MEDS: Azithromycin 500 MG in Sodium Chloride 0.9% 250 ML 250 ML IVPB SCH (14:54)
[2021-08-04 19:50] LABS: SARS-CoV-2 PCR by NAA Not Detected (NotDetected)
[2021-08-04] MEDS: Icosapent Ethyl 1 GM CAPSULE PO SCH (20:56)
[2021-08-04] MEDS: Multivit, Therapeutic 1 TAB PO SCH (20:56)
[2021-08-04] MEDS: Sulfameth/Trimethoprim SS 400-80MG TAB PO SCH (20:57)
[2021-08-04] MEDS: valACYclovir 500 MG TAB PO SCH (20:57)
[2021-08-04 21:13] LABS: Histoplasma Yeast AB (CF) Negative (Neg:<1:2)
[2021-08-04 21:37] LABS: A. flavus Negative (Neg:<1:1); A. fumigatus Negative (Neg:<1:1); A. niger Negative (Neg:<1:1)
[2021-08-05] MEDS: HumaLOG 300 UNITS/3 ML VIAL SC PRN ×6 (00:10→21:10)
[2021-08-05] MEDS ORDERED: Fentanyl CADD 100 ML ONE ×3 (01:19→23:08)
[2021-08-05] MEDS: Fentanyl CADD 100 ML IV SCH ×3 (01:23→23:11)
[2021-08-05] MEDS: Propofol 1,000 MG/100 ML VIAL IV PRN ×4 (01:23→17:18)
[2021-08-05] MEDS: Cefepime 2 GM in Sodium Chloride 0.9% 100 ML IVPB SCH ×2 (04:10→17:19)
[2021-08-05 04:53] LABS: Anion Gap 8 mmol/L (10-20); BUN (Urea Nitrogen) 24 mg/dL (8.4-25.7); Calc. Creatinine Clearance 150 mL/min (70-130); Calcium 8.4 mg/dL (7.8-10.44); Carbon Dioxide 35 mmol/L (22-29); Chloride 100 mmol/L (98-107); Glucose 246 mg/dL (70-105); Potassium 4.6 mmol/L (3.5-5.1); Sodium 138 mmol/L (136-145)
[2021-08-05 05:37] LABS: Anisocytosis SLIGHT = 6-15 cells (100X) (0-5/hpf); Band 10 % (5-11); Hemoglobin 9.7 g/dL (14.0-18.0); Lymphocytes 4 % (21-51); MDiff Complete? YES; Mean Corpuscular HGB CONC 32.9 g/dL (32.0-36.0); Mean Corpuscular Hemoglobin 32.7 pg (27.0-31.0); Mean Corpuscular Volume 99.4 fL (78.0-98.0); Mean Platelet Volume 13.4 fL (7.4-10.4); Monocytes 3 % (0-10); Neutrophil 83 % (42-75); Nucleated RBC 3 % (0); Platelet Count 22 thou/uL (130-400); Platelet Morphology Comment Appears Decreased; RBC Distribution Width 17.9 % (11.5-14.5); Red Blood Cell (RBC) Count 2.95 mill/uL (4.70-6.10); White Blood Cell (WBC) Count 4.6 thou/uL (4.8-10.8)
[2021-08-05 07:06] LABS: Actual Bicarbonate (HCO3a) 31.5 mEq/L (22-28); Base Excess (BEa) 5.8 mEq/L (-2.0 to +3.0); CO2 Tension 51.5 mmHg (35.0-45.0); Calcium, Ionized (arterial) 1.16 mmol/L (1.12-1.30); Carboxyhemoglobin (COHb) 1.3 gm% (0.0-3.0); Hemoglobin (Hb) 10.5 g/dL (14.0-18.0); Potassium - ABG Lab 4.47 mmol/L (3.70-5.30)
[2021-08-05 07:40] LABS: O2 Tension (PaO2), arterial 50.3 mmHg (80.0-100.0)
[2021-08-05 07:41] LABS: ALV-art Gradient 206.175 mmHg (0-20); Puncture Site RRA
[2021-08-05] MEDS ORDERED: VALGANCICLOVIR HCL PER TUBE SCH (09:00)
[2021-08-05] MEDS ORDERED: COMPOUND VEHICLE SF PER TUBE SCH (09:00)
[2021-08-05] MEDS: methylPREDNISolone Sod Succ 40 MG VIAL IVP SCH ×2 (09:01→17:18)
[2021-08-05] MEDS: Fluconazole 100 MG TAB PO SCH ×2 (09:01→21:10)
[2021-08-05] MEDS: Benzonatate 100 MG CAP PO SCH (09:55)
[2021-08-05] MEDS: Pantoprazole 40 MG VIAL IVP SCH (10:19)
[2021-08-05] MEDS: Lorazepam 2 MG/ML VIAL SLOW IVP PRN (11:55)
[2021-08-05] MEDS ORDERED: Refresh Lacri-lube Opth Oint 7 GM TUBE EA EYE PRN (13:54)
[2021-08-05] MEDS ORDERED: Pancrelipase DR 12,000 1 CAP FS PRN ×2 (14:15)
[2021-08-05] MEDS ORDERED: Sodium Bicarbonate Tab 325 MG TAB PER TUBE PRN ×2 (14:15)
[2021-08-05] MEDS: Azithromycin 500 MG in Sodium Chloride 0.9% 250 ML 250 ML IVPB SCH (15:30)
[2021-08-05] MEDS: Multivit, Therapeutic 1 TAB PO SCH (21:10)
[2021-08-05] MEDS: Icosapent Ethyl 1 GM CAPSULE PO SCH (21:10)
[2021-08-05] MEDS: valACYclovir 500 MG TAB PO SCH (21:10)
[2021-08-05] MEDS: Sulfameth/Trimethoprim SS 400-80MG TAB PO SCH (21:10)
[2021-08-05] MEDS: VALGANCICLOVIR HCL PER TUBE SCH (22:33)
[2021-08-05] MEDS: [UNRECOGNIZED DRUG - OTHER] PER TUBE SCH (22:33)
[2021-08-06] MEDS: HumaLOG 300 UNITS/3 ML VIAL SC PRN ×6 (00:26→23:49)
[2021-08-06] MEDS: methylPREDNISolone Sod Succ 40 MG VIAL IVP SCH ×4 (00:26→23:40)
[2021-08-06] MEDS: Propofol 1,000 MG/100 ML VIAL IV PRN ×5 (03:56→23:35)
[2021-08-06] MEDS: Cefepime 2 GM in Sodium Chloride 0.9% 100 ML IVPB SCH ×2 (03:56→16:50)
[2021-08-06 05:25] LABS: Anisocytosis SLIGHT = 6-15 cells (100X) (0-5/hpf); Band 6 % (5-11); Hemoglobin 9.7 g/dL (14.0-18.0); Lymphocytes 4 % (21-51); MDiff Complete? YES; Mean Corpuscular HGB CONC 35.4 g/dL (32.0-36.0); Mean Corpuscular Hemoglobin 34.8 pg (27.0-31.0); Mean Corpuscular Volume 98.4 fL (78.0-98.0); Mean Platelet Volume 12.5 fL (7.4-10.4); Monocytes 1 % (0-10); Myelocyte 1 % (0-0); Neutrophil 88 % (42-75); Nucleated RBC 12 % (0); Platelet Count 71 thou/uL (130-400); Platelet Morphology Comment Appears Decreased; Red Blood Cell (RBC) Count 2.79 mill/uL (4.70-6.10); Schistocytes SLIGHT = 2-5 cells (100X) (0-1/hpf); Tear Drops SLIGHT = 2-5 cells (100X) (0-1/hpf); White Blood Cell (WBC) Count 6.1 thou/uL (4.8-10.8)
[2021-08-06 05:47] LABS: Anion Gap 11 mmol/L (10-20); BUN (Urea Nitrogen) 32 mg/dL (8.4-25.7); Calc. Creatinine Clearance 124 mL/min (70-130); Calcium 8.2 mg/dL (7.8-10.44); Carbon Dioxide 31 mmol/L (22-29); Chloride 101 mmol/L (98-107); Glucose 199 mg/dL (70-105); Potassium 5.4 mmol/L (3.5-5.1); Sodium 138 mmol/L (136-145)
[2021-08-06 07:31] LABS: Actual Bicarbonate (HCO3a) 29.4 mEq/L (22-28); Base Excess (BEa) 5.1 mEq/L (-2.0 to +3.0); CO2 Tension 42.5 mmHg (35.0-45.0); Calcium, Ionized (arterial) 1.16 mmol/L (1.12-1.30); Carboxyhemoglobin (COHb) 1.4 gm% (0.0-3.0); Hemoglobin (Hb) 10.2 g/dL (14.0-18.0); Potassium - ABG Lab 4.98 mmol/L (3.70-5.30); pH, Arterial 7.46 (7.35-7.45)
[2021-08-06 07:41] LABS: ALV-art Gradient 221.225 mmHg (0-20); O2 Tension (PaO2), arterial 46.5 mmHg (80.0-100.0); Puncture Site RRA
[2021-08-06] MEDS: Fluconazole 100 MG TAB PO SCH ×2 (08:59→20:39)
[2021-08-06] MEDS: Pantoprazole 40 MG VIAL IVP SCH ×2 (09:59→11:13)
[2021-08-06] MEDS ORDERED: Fentanyl CADD 100 ML ONE ×2 (10:50→22:16)
[2021-08-06] MEDS: Fentanyl CADD 100 ML IV SCH ×2 (11:01→22:20)
[2021-08-06] MEDS: Lorazepam 2 MG/ML VIAL SLOW IVP PRN ×3 (11:01→22:35)
[2021-08-06] MEDS: [UNRECOGNIZED DRUG - OTHER] PER TUBE SCH ×2 (11:03→21:20)
[2021-08-06] MEDS: VALGANCICLOVIR HCL PER TUBE SCH ×2 (11:03→21:20)
[2021-08-06] MEDS: Azithromycin 500 MG in Sodium Chloride 0.9% 250 ML 250 ML IVPB SCH (14:44)
[2021-08-06] MEDS: Sterile Water 10 ML VIAL IVP PRN ×4 (20:36→22:37)
[2021-08-06] MEDS: Vecuronium 10 MG VIAL IV PRN ×2 (20:36→22:36)
[2021-08-06 20:37] LABS: Chlamydia trachomatis Culture Negative (.)
[2021-08-06] MEDS: Multivit, Therapeutic 1 TAB PO SCH (20:40)
[2021-08-06] MEDS: Icosapent Ethyl 1 GM CAPSULE PO SCH (20:40)
[2021-08-06] MEDS: valACYclovir 500 MG TAB PO SCH (20:41)
[2021-08-06] MEDS: Sulfameth/Trimethoprim SS 400-80MG TAB PO SCH (20:41)
[2021-08-07] MEDS: HumaLOG 300 UNITS/3 ML VIAL SC PRN ×5 (03:48→20:59)
[2021-08-07] MEDS: Propofol 1,000 MG/100 ML VIAL IV PRN ×5 (04:00→22:09)
[2021-08-07] MEDS: Cefepime 2 GM in Sodium Chloride 0.9% 100 ML IVPB SCH ×2 (04:06→16:32)
[2021-08-07 05:01] LABS: ALT (SGPT) 54 U/L (8-55); AST (SGOT) 29 U/L (5-34); Albumin 2.5 g/dL (3.5-5.0); Alkaline Phosphatase 122 U/L (40-110); Anion Gap 11 mmol/L (10-20); BUN (Urea Nitrogen) 30 mg/dL (8.4-25.7); Bilirubin, Total 0.5 mg/dL (0.2-1.2); Calc. Creatinine Clearance 136 mL/min (70-130); Calcium 8.2 mg/dL (7.8-10.44); Carbon Dioxide 30 mmol/L (22-29); Chloride 100 mmol/L (98-107); Globulin 2.4 g/dL (2.4-3.5); Glucose 223 mg/dL (70-105); Potassium 5.1 mmol/L (3.5-5.1); Protein, Total 4.9 g/dL (6.0-8.3); Sodium 136 mmol/L (136-145)
[2021-08-07 06:36] LABS: Anisocytosis SLIGHT = 6-15 cells (100X) (0-5/hpf); Band 25 % (5-11); Elliptocytes SLIGHT = 2-5 cells (100X) (0-1/hpf); Hemoglobin 9.2 g/dL (14.0-18.0); Lymphocytes 6 % (21-51); MDiff Complete? YES; Mean Corpuscular HGB CONC 32.1 g/dL (32.0-36.0); Mean Corpuscular Hemoglobin 32.3 pg (27.0-31.0); Mean Platelet Volume 13.9 fL (7.4-10.4); Monocytes 2 % (0-10); Myelocyte 1 % (0-0); Neutrophil 66 % (42-75); Nucleated RBC 12 % (0); Platelet Count 31 thou/uL (130-400); Platelet Morphology Comment Appears Decreased; RBC Distribution Width 18.8 % (11.5-14.5); Red Blood Cell (RBC) Count 2.84 mill/uL (4.70-6.10); White Blood Cell (WBC) Count 6.5 thou/uL (4.8-10.8)
[2021-08-07 07:23] LABS: Actual Bicarbonate (HCO3a) 30.5 mEq/L (22-28); CO2 Tension 49.7 mmHg (35.0-45.0); Calcium, Ionized (arterial) 1.17 mmol/L (1.12-1.30); Carboxyhemoglobin (COHb) 1.2 gm% (0.0-3.0); Hemoglobin (Hb) 10.5 g/dL (14.0-18.0); Potassium - ABG Lab 4.72 mmol/L (3.70-5.30); pH, Arterial 7.41 (7.35-7.45)
[2021-08-07 07:40] LABS: O2 Tension (PaO2), arterial 51.7 mmHg (80.0-100.0); Puncture Site RRA
[2021-08-07 07:41] LABS: ALV-art Gradient 242.675 mmHg (0-20)
[2021-08-07] MEDS: methylPREDNISolone Sod Succ 40 MG VIAL IVP SCH ×2 (08:13→21:08)
[2021-08-07] MEDS: Fentanyl CADD 100 ML IV SCH ×2 (09:04→19:35)
[2021-08-07] MEDS: Ergocalciferol 1.25 MG(50,000 UNITS) CAP PO SCH (09:22)
[2021-08-07] MEDS: Fluconazole 100 MG TAB PO SCH ×2 (09:22→21:08)
[2021-08-07] MEDS: VALGANCICLOVIR HCL PER TUBE SCH ×2 (10:24→21:12)
[2021-08-07] MEDS: [UNRECOGNIZED DRUG - OTHER] PER TUBE SCH ×2 (10:24→21:12)
[2021-08-07] MEDS: Pantoprazole 40 MG VIAL IVP SCH (10:25)
[2021-08-07] MEDS: Azithromycin 500 MG in Sodium Chloride 0.9% 250 ML 250 ML IVPB SCH (13:32)
[2021-08-07] MEDS ORDERED: Furosemide 40 MG/4 ML VIAL IVP SCH (14:30)
[2021-08-07] MEDS ORDERED: Fentanyl CADD 100 ML ONE (19:31)
[2021-08-07] MEDS: Sulfameth/Trimethoprim SS 400-80MG TAB PO SCH (21:08)
[2021-08-07] MEDS: Multivit, Therapeutic 1 TAB PO SCH (21:09)
[2021-08-07] MEDS: Ezetimibe 10 MG TAB PO SCH (21:09)
[2021-08-07] MEDS: Icosapent Ethyl 1 GM CAPSULE PO SCH (21:10)
[2021-08-07] MEDS: valACYclovir 500 MG TAB PO SCH (21:11)
[2021-08-08] MEDS: HumaLOG 300 UNITS/3 ML VIAL SC PRN ×4 (00:03→21:12)
[2021-08-08] MEDS: Propofol 1,000 MG/100 ML VIAL IV PRN ×5 (03:14→21:16)
[2021-08-08] MEDS: Cefepime 2 GM in Sodium Chloride 0.9% 100 ML IVPB SCH ×2 (04:28→16:58)
[2021-08-08 04:52] LABS: ALT (SGPT) 47 U/L (8-55); AST (SGOT) 34 U/L (5-34); Albumin 2.6 g/dL (3.5-5.0); Alkaline Phosphatase 117 U/L (40-110); Anion Gap 12 mmol/L (10-20); BUN (Urea Nitrogen) 31 mg/dL (8.4-25.7); Bilirubin, Total 0.5 mg/dL (0.2-1.2); Calc. Creatinine Clearance 122 mL/min (70-130); Calcium 8.3 mg/dL (7.8-10.44); Carbon Dioxide 33 mmol/L (22-29); Chloride 95 mmol/L (98-107); Globulin 2.6 g/dL (2.4-3.5); Glucose 197 mg/dL (70-105); Potassium 5.1 mmol/L (3.5-5.1); Protein, Total 5.2 g/dL (6.0-8.3); Sodium 135 mmol/L (136-145)
[2021-08-08 05:47] LABS: Hemoglobin 9.7 g/dL (14.0-18.0); Mean Corpuscular HGB CONC 33.4 g/dL (32.0-36.0); Mean Corpuscular Hemoglobin 33.2 pg (27.0-31.0); Mean Corpuscular Volume 99.4 fL (78.0-98.0); Mean Platelet Volume 13.3 fL (7.4-10.4); Platelet Count 13 thou/uL (130-400); RBC Distribution Width 18.8 % (11.5-14.5); Red Blood Cell (RBC) Count 2.91 mill/uL (4.70-6.10); White Blood Cell (WBC) Count 7.4 thou/uL (4.8-10.8)
[2021-08-08 05:51] LABS: Band 6 % (5-11); Lymphocytes 4 % (21-51); MDiff Complete? YES; Monocytes 3 % (0-10); Neutrophil 87 % (42-75); Nucleated RBC 24 % (0); Platelet Morphology Comment Appears Decreased; Polychromasia SLIGHT = 2-3 cells (100X) (0-2/hpf); Schistocytes SLIGHT = 2-5 cells (100X) (0-1/hpf)
[2021-08-08 07:16] LABS: Actual Bicarbonate (HCO3a) 31.7 mEq/L (22-28); CO2 Tension 36.1 mmHg (35.0-45.0); Calcium, Ionized (arterial) 1.09 mmol/L (1.12-1.30); Carboxyhemoglobin (COHb) 0.9 gm% (0.0-3.0); Hemoglobin (Hb) 9.2 g/dL (14.0-18.0); Potassium - ABG Lab 4.56 mmol/L (3.70-5.30)
[2021-08-08 07:38] LABS: O2 Tension (PaO2), arterial 59.3 mmHg (80.0-100.0); Puncture Site LRA; pH, Arterial 7.56 (7.35-7.45)
[2021-08-08 07:39] LABS: ALV-art Gradient 216.425 mmHg (0-20)
[2021-08-08] MEDS: Fentanyl CADD 100 ML IV SCH ×2 (08:15→19:45)
[2021-08-08] MEDS: Fluconazole 100 MG TAB PO SCH ×2 (08:37→21:12)
[2021-08-08] MEDS: methylPREDNISolone Sod Succ 40 MG VIAL IVP SCH ×2 (08:37→21:12)
[2021-08-08 08:52] VITALS: BMI 23.0
[2021-08-08] MEDS: Pantoprazole 40 MG VIAL IVP SCH (09:34)
[2021-08-08] MEDS: [UNRECOGNIZED DRUG - OTHER] PER TUBE SCH ×2 (09:35→21:14)
[2021-08-08] MEDS: VALGANCICLOVIR HCL PER TUBE SCH ×2 (09:35→21:14)
[2021-08-08] MEDS: Azithromycin 500 MG in Sodium Chloride 0.9% 250 ML 250 ML IVPB SCH (14:49)
[2021-08-08] MEDS: Vecuronium 10 MG VIAL IV PRN ×2 (16:50→19:44)
[2021-08-08 17:38] LABS: Fungus Stain Final report (.)
[2021-08-08] MEDS ORDERED: Vecuronium 10 MG VIAL ONE (19:41)
[2021-08-08] MEDS: Sulfameth/Trimethoprim SS 400-80MG TAB PO SCH (21:11)
[2021-08-08] MEDS: Icosapent Ethyl 1 GM CAPSULE PO SCH (21:11)
[2021-08-08] MEDS: Ezetimibe 10 MG TAB PO SCH (21:12)
[2021-08-08] MEDS: Multivit, Therapeutic 1 TAB PO SCH (21:12)
[2021-08-08] MEDS: valACYclovir 500 MG TAB PO SCH (21:13)
[2021-08-09] MEDS: Propofol 1,000 MG/100 ML VIAL IV PRN ×4 (01:15→18:35)
[2021-08-09] MEDS: HumaLOG 300 UNITS/3 ML VIAL SC PRN ×4 (01:23→16:41)
[2021-08-09 04:02] LABS: ALT (SGPT) 42 U/L (8-55); AST (SGOT) 29 U/L (5-34); Albumin 2.6 g/dL (3.5-5.0); Alkaline Phosphatase 118 U/L (40-110); Anion Gap 9 mmol/L (10-20); BUN (Urea Nitrogen) 27 mg/dL (8.4-25.7); Bilirubin, Total 0.8 mg/dL (0.2-1.2); Calc. Creatinine Clearance 140 mL/min (70-130); Calcium 8.5 mg/dL (7.8-10.44); Carbon Dioxide 35 mmol/L (22-29); Chloride 96 mmol/L (98-107); Globulin 2.4 g/dL (2.4-3.5); Glucose 215 mg/dL (70-105); Potassium 4.5 mmol/L (3.5-5.1); Sodium 135 mmol/L (136-145)
[2021-08-09 04:45] LABS: Anisocytosis SLIGHT = 6-15 cells (100X) (0-5/hpf); Band 16 % (5-11); Hemoglobin 9.1 g/dL (14.0-18.0); Lymphocytes 10 % (21-51); MDiff Complete? YES; Mean Corpuscular HGB CONC 32.6 g/dL (32.0-36.0); Mean Corpuscular Hemoglobin 32.4 pg (27.0-31.0); Mean Corpuscular Volume 99.6 fL (78.0-98.0); Mean Platelet Volume 7.3 fL (7.4-10.4); Monocytes 4 % (0-10); Neutrophil 70 % (42-75); Nucleated RBC 7 % (0); Platelet Count 63 thou/uL (130-400); Platelet Morphology Comment Appears Decreased; RBC Distribution Width 18.7 % (11.5-14.5); White Blood Cell (WBC) Count 5.9 thou/uL (4.8-10.8)
[2021-08-09] MEDS: Cefepime 2 GM in Sodium Chloride 0.9% 100 ML IVPB SCH ×2 (05:02→16:43)
[2021-08-09] MEDS: Sterile Water 10 ML VIAL IVP PRN ×2 (05:03→06:45)
[2021-08-09] MEDS: Vecuronium 10 MG VIAL IV PRN ×9 (05:03→21:40)
[2021-08-09] MEDS: Fentanyl CADD 100 ML IV SCH ×2 (05:09→15:56)
[2021-08-09 07:23] LABS: Actual Bicarbonate (HCO3a) 34.1 mEq/L (22-28); Base Excess (BEa) 8.8 mEq/L (-2.0 to +3.0); CO2 Tension 50.7 mmHg (35.0-45.0); Calcium, Ionized (arterial) 1.12 mmol/L (1.12-1.30); Carboxyhemoglobin (COHb) 1.2 gm% (0.0-3.0); Hemoglobin (Hb) 9.8 g/dL (14.0-18.0); Potassium - ABG Lab 4.34 mmol/L (3.70-5.30); pH, Arterial 7.45 (7.35-7.45)
[2021-08-09 07:25] LABS: ALV-art Gradient 239.925 mmHg (0-20); O2 Tension (PaO2), arterial 53.2 mmHg (80.0-100.0); Puncture Site RRA
[2021-08-09] MEDS: Lorazepam 2 MG/ML VIAL SLOW IVP PRN ×2 (07:54→15:06)
[2021-08-09] MEDS: methylPREDNISolone Sod Succ 40 MG VIAL IVP SCH ×2 (09:43→20:38)
[2021-08-09] MEDS: Fluconazole 100 MG TAB PO SCH ×2 (09:43→20:39)
[2021-08-09] MEDS: VALGANCICLOVIR HCL PER TUBE SCH ×2 (09:48→21:11)
[2021-08-09] MEDS: [UNRECOGNIZED DRUG - OTHER] PER TUBE SCH ×2 (09:48→21:11)
[2021-08-09] MEDS: Pantoprazole 40 MG VIAL IVP SCH (09:48)
[2021-08-09] MEDS ORDERED: Vecuronium Bromide 50 MG in Sodium Chloride 0.9% 250 ML 250 ML IV SCH (14:00)
[2021-08-09] MEDS: Azithromycin 500 MG in Sodium Chloride 0.9% 250 ML 250 ML IVPB SCH (14:47)
[2021-08-09] MEDS: Icosapent Ethyl 1 GM CAPSULE PO SCH (20:38)
[2021-08-09] MEDS: Sulfameth/Trimethoprim SS 400-80MG TAB PO SCH (20:38)
[2021-08-09] MEDS: Ezetimibe 10 MG TAB PO SCH (20:39)
[2021-08-09] MEDS: Multivit, Therapeutic 1 TAB PO SCH (20:39)
[2021-08-09] MEDS: valACYclovir 500 MG TAB PO SCH (20:39)
[2021-08-10] MEDS: HumaLOG 300 UNITS/3 ML VIAL SC PRN ×2 (00:14→04:30)
[2021-08-10] MEDS: Propofol 1,000 MG/100 ML VIAL IV PRN ×2 (00:16→05:40)
[2021-08-10] MEDS: Vecuronium 10 MG VIAL IV PRN (02:45)
[2021-08-10] MEDS: Lorazepam 2 MG/ML VIAL SLOW IVP PRN ×2 (03:25→08:20)
[2021-08-10 04:03] LABS: Hemoglobin 9.9 g/dL (14.0-18.0); Mean Corpuscular HGB CONC 33.3 g/dL (32.0-36.0); Mean Corpuscular Hemoglobin 33.3 pg (27.0-31.0); Mean Platelet Volume 8.6 fL (7.4-10.4); Platelet Count 63 thou/uL (130-400); RBC Distribution Width 19.6 % (11.5-14.5); Red Blood Cell (RBC) Count 2.98 mill/uL (4.70-6.10); White Blood Cell (WBC) Count 6.8 thou/uL (4.8-10.8)
[2021-08-10 04:14] LABS: Phosphorus 3.4 mg/dL (2.3-4.7)
[2021-08-10 04:16] LABS: ALT (SGPT) 44 U/L (8-55); AST (SGOT) 29 U/L (5-34); Albumin 2.7 g/dL (3.5-5.0); Alkaline Phosphatase 120 U/L (40-110); Anion Gap 9 mmol/L (10-20); BUN (Urea Nitrogen) 19 mg/dL (8.4-25.7); Bilirubin, Total 0.8 mg/dL (0.2-1.2); Calc. Creatinine Clearance 140 mL/min (70-130); Calcium 8.6 mg/dL (7.8-10.44); Carbon Dioxide 36 mmol/L (22-29); Chloride 96 mmol/L (98-107); Glucose 197 mg/dL (70-105); Magnesium 1.9 mg/dL (1.6-2.6); Potassium 4.6 mmol/L (3.5-5.1); Protein, Total 5.7 g/dL (6.0-8.3); Sodium 136 mmol/L (136-145)
[2021-08-10] MEDS: Cefepime 2 GM in Sodium Chloride 0.9% 100 ML IVPB SCH (04:32)
[2021-08-10 05:01] LABS: Band 18 % (5-11); Lymphocytes 9 % (21-51); MDiff Complete? YES; Monocytes 1 % (0-10); Neutrophil 72 % (42-75); Nucleated RBC 9 % (0); Platelet Morphology Comment Appears Decreased; Polychromasia SLIGHT = 2-3 cells (100X) (0-2/hpf)
[2021-08-10 06:55] VITALS: BP 93/64
[2021-08-10 07:25] LABS: Actual Bicarbonate (HCO3a) 31.6 mEq/L (22-28); Base Excess (BEa) 7.3 mEq/L (-2.0 to +3.0); CO2 Tension 43.7 mmHg (35.0-45.0); Calcium, Ionized (arterial) 1.15 mmol/L (1.12-1.30); Carboxyhemoglobin (COHb) 1.2 gm% (0.0-3.0); Hemoglobin (Hb) 8.8 g/dL (14.0-18.0); pH, Arterial 7.48 (7.35-7.45)
[2021-08-10 08:01] VITALS: TEMP 98.6
[2021-08-10 11:29] LABS: O2 Tension (PaO2), arterial 46.9 mmHg (80.0-100.0); Puncture Site LRA
[2021-08-10 11:30] LABS: ALV-art Gradient 254.975 mmHg (0-20)
[2021-08-11 08:15] LABS: Final Culture No virus isolated. (.)
[2021-08-12 22:12] LABS: QuantiFERON-TB Gold Plus Indeterminate (Negative)
== END 2021-08-10 08:45 | disposition short-term general hospital (02) | DRG 870 ==
LOC: ERS 17:04 → ONC 19:58 → CCU 07-28 08:21 → IMCU/EMU 07-29 10:27 → CCU 07-31 19:21
PROVIDERS: ADMIT Student in an Organized Health Care Education/Training Program; ATTEND Family Medicine
PROC: 5A0945A Assistance with Respiratory Ventilation, 24-96 Consecutive Hours, High Flow/Velocity Cannula (ICD-10-PCS; 2021-07-27)
PROC: 5A1955Z Respiratory Ventilation, Greater than 96 Consecutive Hours (ICD-10-PCS; principal; 2021-07-31)
PROC: 0BH17EZ Insertion of Endotracheal Airway into Trachea, Via Natural or Artificial Opening (ICD-10-PCS; 2021-07-31)
PROC: 0D9670Z Drainage of Stomach with Drainage Device, Via Natural or Artificial Opening (ICD-10-PCS; 2021-07-31)
PROC: 3E033XZ Introduction of Vasopressor into Peripheral Vein, Percutaneous Approach (ICD-10-PCS; 2021-07-31)
PROC: 30233R1 Transfusion of Nonautologous Platelets into Peripheral Vein, Percutaneous Approach (ICD-10-PCS; 2021-08-08)
DX: A41.89 Other specified sepsis (principal); J80 Acute respiratory distress syndrome; Z94.84 Stem cells transplant status; E87.1 Hypo-osmolality and hyponatremia; E87.2 Acidosis; J84.116 Cryptogenic organizing pneumonia; C90.00 Multiple myeloma not having achieved remission; T86.00 Unspecified complication of bone marrow transplant; I25.810 Atherosclerosis of coronary artery bypass graft(s) without angina pectoris; B25.9 Cytomegaloviral disease, unspecified; Z20.822 Contact with and (suspected) exposure to COVID-19; R65.20 Severe sepsis without septic shock; I10 Essential (primary) hypertension; E78.5 Hyperlipidemia, unspecified; G47.33 Obstructive sleep apnea (adult) (pediatric); D63.0 Anemia in neoplastic disease; D69.6 Thrombocytopenia, unspecified; I25.2 Old myocardial infarction; Z95.1 Presence of aortocoronary bypass graft; Z79.82 Long term (current) use of aspirin; Z79.899 Other long term (current) drug therapy; Z78.1 Physical restraint status
CPT/HCPCS: 36415; 36416; 36430; 36600; 71045; 71275; 80048; 80053; 82533; 82805; 83036; 83605; 83735; 83880; 83930; 83935; 84100; 84145; 84300; 84439; 84443; 84481; 84484; 85025; 85379; 85384; 85610; 85730; 86140; 86480; 86606; 86644; 86645; 86698; 86850; 86900; 86901; 87040; 87070; 87081; 87102; 87103; 87116; 87205; 87206; 87207; 87252; 87385; 87449; 87497; 87899; 93005; 93010; 94002; 94003; 96365; 96366; 96367; 96375; C9113; J0456; J0583; J0610; J0692; J1570; J1650; J1815; J1940; J1956; J2020; J2060; J2250; J2270; J2543; J2704; J2920; J2930; J3010; J3490; J7050; J8499; P9035; Q9967; U0002; U0003; U0005